=== PATIENT | male | born 1980 | race African-American/Black ===

== ENCOUNTER 2019-02-13 17:36 | Emergency (ER) | payer OTHER ==
[2019-02-13] MEDS ORDERED: KETOROLAC TROMETHAMINE 60 MG/2 ML SDV IM ONE (19:09)
[2019-02-13] MEDS ORDERED: LIDOCAINE 5% (700 MG) TRANSDERMAL ADH..PATCH TP ONE (19:09)
[2019-02-13] MEDS ORDERED: ACETAMINOPHEN 325 MG TABLET PO ONE (19:09)
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
[2019-02-13 20:28] VITALS: BP 134/77
== END 2019-02-13 20:19 | disposition home or self-care (01) ==
LOC: ER 17:36
DX: S16.1XXA Strain of muscle, fascia and tendon at neck level, initial encounter (principal); M54.42 Lumbago with sciatica, left side; M54.6 Pain in thoracic spine; V89.2XXA Person injured in unspecified motor-vehicle accident, traffic, initial encounter; Z91.013 Allergy to seafood
CPT/HCPCS: 99284; 96372; 71046; 72125; 72131; J1885